=== PATIENT | male | born 2005 | race Two or more races ===

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

== ENCOUNTER 2024-05-07 09:10 | Emergency (ER) | payer OTHER, SELFPAY ==
--- NOTE | ~2024-05-07 | XR_ITS ---
EXAMINATION: XR LUMBOSACRAL SPINE CLINICAL INFORMATION: Back pain. COMPARISON: None available. TECHNIQUE: Three views of the lumbosacral spine. FINDINGS: There are 5 nonrib-bearing lumbar vertebrae. Lumbar spinal alignment is anatomic in the sagittal projection. Vertebral body heights are preserved. The intervertebral disc space heights are preserved. There is mild facet arthropathy at L4-5 and L5-S1. No acute fracture. The sacroiliac joints are intact. XR/XR lumbar spine 2-3V IMPRESSION: Mild facet arthropathy at L4-5 and L5-S1. No acute osseous lumbar spine abnormality. Electronically signed by: Brayden Johnson DO 05/07/2024 02:02 PM EDT
--- NOTE | ~2024-05-07 | XR_ITS ---
EXAMINATION: XR THORACIC SPINE CLINICAL INFORMATION: Back pain. COMPARISON: None available. TECHNIQUE: 3 views of the thoracic spine were obtained. FINDINGS: Thoracic spinal alignment is anatomic in the sagittal projection. Vertebral body heights are preserved. Intervertebral disc space heights are preserved. No acute fracture. Paraspinal soft tissue is normal in appearance. Visualized lungs are clear. XR/XR thoracic spine 3V IMPRESSION: No acute osseous thoracic spine abnormality. Electronically signed by: Brayden Johnson DO 05/07/2024 02:04 PM EDT
[2024-05-07 09:18] VITALS: BP 117/50; BP 118/86; PULSE 52; RESP 18; TEMP 36.8; O2SAT 100; O2SAT 98; BMI 35.5
--- NOTE | 2024-05-07 10:08 | ED.BACK ---
HPI - Back Pain/Injury General Chief Complaint: Back Pain/Injury Stated Complaint: BACK PAIN S/P LIFTING HEAVY OBJECT @ WORK PER EMS Time Seen by Provider: 05/07/24 09:19 Source: patient and RN notes reviewed Mode of arrival: ambulatory Limitations: no limitations History of Present Illness ED Provider: Ariela Tapia PA-C HPI Narrative: This is a 18-year-old male, with no known medical problems, who presents emergency department via EMS with complaints of back pain since this morning. Patient states that while at work he lifted a box of toilet paper, and immediately had pain in his back. He states that back pain is constant however waxes and wanes in severity. Describing it as a spasm like sensation. Pain is exacerbated with positional changes. He denies history of similar symptoms in the past. Denies any problems with his back. He denies any recent illness, fevers, chills, chest pain, shortness of breath, abdominal pain, nausea, vomiting or diarrhea. No saddle anesthesia. No urinary or bowel retention or incontinence. No history of IVDA No other complaints or concerns at this time. MD elicited complaint: back pain and back injury Timing: constant Severity: moderate Similar Symptoms Previously: No Quality: aching and spasming Location: thoracic spine Radiation: none Exacerbating factors: movement Relieving factors: immobilization Context: while lifting Associated symptoms: denies other symptoms Work related injury: Yes Related Data Previous Rx's ?Medication ?Instructions ?Recorded acetaminophen 325 mg capsule 650 mg (2 x 325 mg) PO Q6H PRN 01/15/21 fever or pain #20 caps ibuprofen 600 mg tablet 600 mg PO Q8H PRN fever or pain 01/15/21 #10 tabs Allergies Allergy/AdvReac Type Severity Reaction Status Date / Time SEAFOOD Allergy Severe ANAPHYLAXIS Uncoded 05/07/24 09:19 Review of Systems Review of Systems: Yes all other systems are reviewed and are negative Constitutional: Constitutional: Reports as per [facility] Past Medical History Attestation statement: The following information was validated with the patient. 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 Physical Exam Vital Signs: Vital Signs: Last Vital Signs Temp 98.5 F 05/07/24 15:58 Pulse 50 05/07/24 15:58 Resp 16 05/07/24 15:58 BP 102/62 05/07/24 15:58 Pulse Ox 98 05/07/24 15:58 O2 Del Method Room Air 05/07/24 15:58 BMI result Body Mass Index 35.5 Const: General: cooperative, comfortable and no acute distress Orientation/consciousness: patient oriented x3 Limitations: no limitations HEENT: Head: Yes normal to inspection, Yes normocephalic and Yes atraumatic Ears: hearing grossly normal bilaterally General nose exam: Normal external nose present Face and sinus: Yes normal facial exam Mouth: Normal oral and palatal mucosa present, oropharynx normal and moist mucous membranes Throat: Yes posterior oropharynx normal Eyes: General: appearance normal, both eyes and all related structures Eyelids: Yes eyelids normal Conjunctivae: conjunctivae normal Sclerae: sclerae normal Pupils: Equal, round and reactive pupils present EOM: EOMs intact bilaterally Neck: Neck: Yes normal visual inspection, Yes full ROM and Yes no lymphadenopathy Lymphatic: no lymphadenopathy noted Chest: Chest palpation & inspection: normal inspection of the chest Resp: Effort & Inspection: normal respiratory effort and able to speak in complete sentences Auscultation: clear to auscultation bilaterally, no crackles, no rales, no rhonchi and no wheezes Cardio: Rate: regular rate Rhythm: regular rhythm Heart sounds: S1 normal heart sound present and S2 normal heart sound present GI: Inspection: Yes normal to inspection Back/Spine/Pelvis: Other: No midline spine tenderness on examination. He has tenderness palpation along the thoracic paraspinous muscles, pain exacerbated with positional changes during examination. Strength 5/5 in lower extremities. DTR 2+, sensation intact. Skin: General skin exam: no rashes or lesions noted Trauma: no lacerations or abrasions Wounds: no wounds Neuro: General: patient oriented x3 and moves all extremities Cranial nerves: Yes Equal, round and reactive pupils present Extrem: General: Yes normal to inspection Right upper extremity: normal to inspection Left upper extremity: normal to inspection Right lower extremity: normal to inspection Left lower extremity: normal to inspection Course Reevaluation(s) Reevaluation #1: X-rays reviewed with no acute bony abnormalities. There is some evidence of mild facet arthropathy at L4-L5 and L5-S1, discussed findings with patient. He will follow-up with his PCP. Given strict return precautions. He is ambulatory and feeling much better after Toradol. Patient stable for discharge Medications Administered Discontinued Medications Generic Name Dose Route Start Last Admin Trade Name Massimo PRN Reason Stop Dose Admin Ketorolac Tromethamine 30 mg 05/07/24 10:09 05/07/24 10:16 Ketorolac Tromethamine 30 Mg/Ml Vial IM 05/07/24 10:10 30 mg ONCE ONE Administration Medical Decision Making Medical Decision Making [facility] Narrative: This is a 18-year-old male who presents emergency department with complaints of back pain after lifting a box of toilet paper at work. On arrival, vital signs within normal limits. He has no known problems with his back in the past. This patient presents with back pain most consistent with lumbar spasm. Differential diagnoses includes lumbago versus musculoskeletal spasm / strain versus sciatica. No back pain red flags on history or physical. Presentation not consistent with malignancy (lack of history of malignancy, lack of B symptoms), fracture (no trauma, no bony tenderness to palpation), cauda equina (no bowel or urinary incontinence/retention, no saddle anesthesia, no distal weakness), AAA, viscus perforation , pulmonary embolism, renal colic, pyelonephritis (afebrile, no CVAT, no urinary symptoms). Plan: X-rays, Toradol, re-evaluation Differential Diagnosis Differential Diagnoses: The differential diagnosis associated with the presentation includes See above Admission/Observation Consideration of admission/observation: Escalation of care including admission/observation considered Lab Data [facility] Lab Attestation statement: I reviewed the patient's lab results. Radiology Impression Discussion of test interpretation with radiology: I have reviewed the radiologist's reading. External Record Review External record reviewed: Inpatient record, Office record, Outpatient record, Prior outpatient labs, Prior outpatient radiology, Primary care record and Outside ED record Discharge Plan Discharge Clinical Impression: Back pain Patient Disposition: Home, Self-Care Instructions: Back Pain (ED) Additional Instructions: You were seen in the ER for back pain. Your x-ray shows arthritis, otherwise no acute bony abnormality. Please rest, apply heat or ice, gentle stretching and massage can help with your symptoms. Continue taking ibuprofen and or Tylenol as needed for pain. Lidoderm patches can also help with your symptoms. If any new or worsening symptoms occur including but not limited to urinary symptoms, chest pain, shortness breath, dizziness, blurred vision, numbness or tingling into your extremities, lower extremity weakness, please return for re-evaluation. Prescriptions: No Action ibuprofen 600 mg tablet 600 mg PO Q8H PRN (Reason: fever or pain) Qty: 10 0RF acetaminophen 325 mg capsule 650 mg PO Q6H PRN (Reason: fever or pain) Qty: 20 0RF Stand Alone Forms: Work/School Release Interventions: ED Discharge Assessment Last Done: 05/07/24 15:58 Discharge Date/Time: 05/07/24 15:58 Print Language: Danish
[2024-05-07] MEDS: Ketorolac Tromethamine 30 MG/ML VIAL IM (10:16)
[2024-05-07 11:24] VITALS: BP 98/39; PULSE 57; RESP 16; TEMP 36.8; O2SAT 99
[2024-05-07 12:39] VITALS: BP 107/68; PULSE 53; RESP 16; TEMP 36.8; O2SAT 99
[2024-05-07 15:14] VITALS: BP 110/57; PULSE 48; RESP 14; TEMP 36.9; O2SAT 100
[2024-05-07 15:41] VITALS: BP 102/62; PULSE 50; RESP 16; TEMP 36.9; O2SAT 98
[2024-05-07 15:58] VITALS: BP 102/62; PULSE 50; RESP 16; TEMP 36.9; O2SAT 98
== END 2024-05-07 15:58 | disposition home or self-care (01) ==
PROVIDERS: Emergency Provider Student in an Organized Health Care Education/Training Program; PCP Family Medicine
DX: S29.9XXA Unspecified injury of thorax, initial encounter (principal); M54.50 Low back pain, unspecified; M54.6 Pain in thoracic spine; X50.0XXA Overexertion from strenuous movement or load, initial encounter; Y93.89 Activity, other specified; Y92.89 Other specified places as the place of occurrence of the external cause; Y99.0 Civilian activity done for income or pay
CPT/HCPCS: 72072; 72100; 96372; 99284; J1885